=== PATIENT | female | born 1985 | race Caucasian/White ===

== ENCOUNTER 2016-11-27 23:33 | Emergency (ER) | payer MEDICAID ==
[2016-11-27 23:34] VITALS: BMI 26.9
[2016-11-28 00:05] VITALS: RESP 20; TEMP 98.1
[2016-11-28] MEDS ORDERED: Bacitracin 500 Units/gm Oint Foilpak UD ONE (00:17)
--- NOTE | 2016-11-28 00:25 | C.PDOC ---
History Of Present Illness 31 year old female presents to the ED with complaints of an unwrapped dressing from a left foot surgery performed in [place] last week. The patient states the surgery was last week and she went back to the pediatrist to have the dressing changed. She notes the dressing was not placed well and began to unwrap and come out today. Patient denies any pain in the foot or any other complaints at this time. Time Seen by Provider: 11/28/16 00:09 Chief Complaint (Nursing): Lower Extremity Problem/Injury History Per: Patient History/Exam Limitations: no limitations Recent travel outside of the [place]: No - Ankle/Foot Description Of Injury: Other (recent surgery to left foot ) Past Medical History Reviewed: Historical Data, Nursing Documentation, Vital Signs Vital Signs: Last Vital Signs Temp 98.1 F 11/27/16 23:58 Pulse 78 11/28/16 00:30 Resp 20 11/28/16 00:30 BP 116/88 11/28/16 00:30 Pulse Ox 98 11/28/16 00:30 Family History: States: Unknown Family Hx - Social History Hx Tobacco Use: No Hx Alcohol Use: No Hx Substance Use: No - Immunization History Hx Tetanus Toxoid Vaccination: Yes Hx Influenza Vaccination: No Hx Pneumococcal Vaccination: No Review Of Systems Constitutional: Negative for: Fever, Chills, Sweats Cardiovascular: Negative for: Chest Pain, Palpitations Respiratory: Negative for: Cough, Shortness of Breath Gastrointestinal: Negative for: Nausea, Vomiting, Abdominal Pain, Diarrhea Musculoskeletal: Negative for: Back Pain, Leg Pain, Foot Pain Neurological: Negative for: Headache, Dizziness Physical Exam - Physical Exam Appears: Non-toxic, No Acute Distress Skin: Warm, Dry Oral Mucosa: Moist Neck: Supple Cardiovascular: Rhythm Regular Respiratory: No Rales, No Rhonchi, No Stridor, No Wheezing Extremity: Normal ROM, No Tenderness, No Swelling, Other (On the left foot, toes 2 an 5 have stitches still intact. There was no infection, no swelling, and no drainage. ) ED Course And Treatment O2 Sat by Pulse Oximetry: 100 Medical Decision Making Medical Decision Making: The patient's dressing was changed and the area was cleaned. Disposition - Disposition Disposition: HOME/ ROUTINE Disposition Time: 00:24 Condition: STABLE Additional Instructions: Follow up with your Podistrist as scheduled. return to ED if feel worse. Instructions: Care For Your Stitches (ED) - Clinical Impression Clinical Impression: Dressing change - Scribe Statement Naheed Tobias All medical record entries made by the Scribe were at my direction and personally dictated by me. I have reviewed the chart and agree that the record accurately reflects my personal performance of the history, physical exam, medical decision making, and the department course for this patient. I have also personally directed, reviewed, and agree with the discharge instructions and disposition.
[2016-11-28 01:15] VITALS: BP 116/88; PULSE 78
[2016-11-28 02:29] VITALS: O2SAT 100
== END 2016-11-28 00:30 | disposition home or self-care (01) ==
LOC: C.ER 23:33
DX: Z48.01 Encounter for change or removal of surgical wound dressing (principal)

== ENCOUNTER 2018-10-03 20:17 | Emergency (ER) | payer OTHER, MEDICAID ==
[2018-10-03 20:17] VITALS: BMI 26.9
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
[2018-10-03 21:31] VITALS: BP 151/99; PULSE 77; RESP 20; TEMP 98.1
[2018-10-03 21:32] VITALS: O2SAT 100
== END 2018-10-03 21:35 | disposition home or self-care (01) ==
LOC: C.ER 20:17
DX: M25.561 Pain in right knee (principal); V03.90XD Pedestrian on foot injured in collision with car, pick-up truck or van, unspecified whether traffic or nontraffic accident, subsequent encounter